=== PATIENT | male | born 1980 | race Caucasian/White ===

== ENCOUNTER 2020-05-10 09:04 | Emergency (ER) | payer SELFPAY ==
[~2020-05-10] VITALS: Ht 177.8 cm; Wt 110.0 kg
[2020-05-10 09:59] VITALS: BP 148/90
== END 2020-05-10 10:18 | disposition home or self-care (01) ==
LOC: ER 09:04
DX: T43.011A Poisoning by tricyclic antidepressants, accidental (unintentional), initial encounter (principal); T43.221A Poisoning by selective serotonin reuptake inhibitors, accidental (unintentional), initial encounter; F41.9 Anxiety disorder, unspecified; I10 Essential (primary) hypertension; Y92.9 Unspecified place or not applicable
CPT/HCPCS: 99281

== ENCOUNTER 2023-03-22 09:04 | Emergency (ER) | payer MEDICAID ==
[~2023-03-22] VITALS: Ht 180.3 cm; Wt 153.0 kg
[2023-03-22 09:17] VITALS: BP 167/94
[2023-03-22] MEDS ORDERED: IBUP-2029 MT (11:05)
[2023-03-22] MEDS ORDERED: CLIN-194 MT (11:05)
== END 2023-03-22 11:50 | disposition home or self-care (01) ==
LOC: ER 09:26
DX: K08.89 Other specified disorders of teeth and supporting structures (principal); F41.9 Anxiety disorder, unspecified; I10 Essential (primary) hypertension; Z88.0 Allergy status to penicillin
CPT/HCPCS: 99281; 99283